=== PATIENT | female | born 1975 | race Caucasian/White ===

== ENCOUNTER 2025-06-25 08:02 | Outpatient (CLI) | payer BC, SELFPAY | END 2025-06-25 08:03 | disposition home or self-care (01) | LOC: NFLDREF 06-27 08:37 | PROVIDERS: PCP Physician Assistant Medical; Referring Provider Physician Assistant Medical; Visit Provider Physician Assistant Medical | DX: R73.03 Prediabetes (principal); Z13.6 Encounter for screening for cardiovascular disorders | CPT/HCPCS: 80053; 80061; 84443 ==

== ENCOUNTER 2025-08-18 09:24 | Outpatient (CLI) | payer BC, SELFPAY | END 2025-08-18 09:25 | disposition home or self-care (01) | PROVIDERS: PCP Physician Assistant Medical; Visit Provider Physician Assistant | DX: R20.8 Other disturbances of skin sensation (principal); H04.123 Dry eye syndrome of bilateral lacrimal glands; K13.70 Unspecified lesions of oral mucosa | CPT/HCPCS: 82306; 82607; 82728; 82746; 86038; 86235 ==